=== PATIENT | male | born 1995 | race Caucasian/White ===

== ENCOUNTER 2022-07-19 10:52 | Outpatient (CLI) | payer OTHER, SELFPAY ==
[2022-07-19 10:54] LABS: ESR 3 mm/hr (0-15)
[2022-07-19 10:55] LABS: Abs Immature Grans 0.01 10^3/uL (0.0-0.06); Absolute Eosinophil Count 0.01 10^3/uL (0.0-0.7); Absolute Lymphocyte Count 0.59 10^3/uL (1.2-3.4); Absolute Monocyte Count 0.36 10^3/uL (0.1-0.8); Absolute Neutrophil Count 1.04 10^3/uL (1.2-6.7); Eosinophils % 0.5; HCT 35.3 % (40.0-50.0); Immature Grans % 0.5; Lymphocytes % 29.4; MCH 33.1 pg (27.0-33.0); MCV 98 fL (80-95); MPV 8.9 fL (8.0-11.0); Monocytes % 17.9; Neutrophils % 51.7; Platelet Count 102 10^3/uL (130-400); RBC 3.62 10^6/uL (4.36-5.78); RDW-SD 50.7 fL; WBC 2.01 10^3/uL (4.4-10.8)
[2022-07-19 11:45] LABS: ALT 92 U/L (16-63); AST 58 U/L (15-37); Alkaline Phosphatase 265 U/L (46-116); BUN 14 mg/dL (7-18); Bilirubin, Total 0.4 mg/dL (0.2-1.0); CREATININE 1.1 mg/dL (0.70-1.30); Calcium 9.1 mg/dL (8.5-10.1); Chloride 107 mmol/L (98-107); Estimated GFR 95.54 (mL/min/1.73m2); Glucose 72 mg/dL (74-106); Magnesium 2.1 mg/dL (1.8-2.4); Potassium 4.3 mmol/L (3.5-5.1); Sodium 142 mmol/L (136-145); Total Protein 7.6 g/dL (6.4-8.2)
== END 2022-07-19 10:53 | disposition home or self-care (01) ==
LOC: LBO 10:58
PROVIDERS: Visit Provider Nurse Practitioner Adult Health
DX: C81.90 Hodgkin lymphoma, unspecified, unspecified site (principal); Z94.81 Bone marrow transplant status
CPT/HCPCS: 36415; 80053; 85652; 83735; 85025